=== PATIENT | female | born 1955 | race Caucasian/White ===

== ENCOUNTER 2024-03-08 09:58 | Emergency (ER) | payer MEDICARE, SELFPAY ==
[2024-03-08 10:10] VITALS: BP 128/81; PULSE 61; RESP 16; TEMP 36.6; O2SAT 97
--- NOTE | 2024-03-08 10:13 | ED.FEMALEGU ---
HPI - Female Genitourinary General Chief complaint: Urogenital-Female Stated complaint: Urinary Problem Time Seen by Provider: 03/08/24 10:15 Source: patient, RN notes reviewed and old records reviewed Mode of arrival: ambulatory Limitations: no limitations History of Present Illness HPI Narrative: 68 year old female presents to [facility] care with complaints of UTI symptoms which includes 3-4 days of feeling tired, forgetful and some nausea which are same symptoms she had last time with UTI that she became septic with a year ago. Patient reports no fevers, diarrhea or any vomiting. Patient reports no CV tenderness or pain to lower abdomen over bladder region, adelaida any fevers MD elicited complaint: UTI Pertinent past history: other (UTI became septic last year with UTI) Onset (ago): day(s) (3-4 dys) Severity scale (1-10): 5 Quality of pain: dull Consistency: constant Vaginal discharge: none Vaginal bleeding: none Treatment prior to arrival: none Patient : No Related Data Home Medications Medication Instructions Recorded Confirmed famotidine 20 mg tablet mg 03/08/24 fenofibrate 160 mg tablet mg 03/08/24 fluoxetine 40 mg capsule mg 03/08/24 haloperidol 2 mg tablet mg 03/08/24 levothyroxine 50 mcg tablet mcg 03/08/24 omeprazole 20 mg capsule,delayed mg 03/08/24 release pravastatin 40 mg tablet mg 03/08/24 Allergies Allergy/AdvReac Type Severity Reaction Status Date / Time No Known Allergies Allergy Verified 03/08/24 10:19 Review of Systems Review of Systems: CONSTITUTIONAL: Denies fever, chills, or sweats.tired CARDIOVASCULAR: Denies chest pain, palpitations, or edema. RESPIRATORY: Denies cough or dyspnea. GASTROINTESTINAL: Denies abdominal pain, nausea, vomiting, or diarrhea. GENITOURINARY: Reports no dysuria, frequency, urgency. Denies flank pain or hematuria.states nausea, reports no burning with urination. SKIN: Denies rash or itching. MUSCULOSKELETAL: Denies back pain or myalgia. Denies CVA tenderness NEUROLOGIC: Denies headache All systems reviewed & are unremarkable except as noted in HPI and below PMFSH Past Medical History Medical History (Updated 03/08/24 @ 13:04 by Emily Rico NP) Chronic renal disease, stage II Depression GERD (gastroesophageal reflux disease) Hypothyroidism Sepsis related to UTI last year Surgical History Surgical History (Updated 03/08/24 @ 13:04 by Emily Rico NP) H/O tubal ligation Social History Social History (Updated 03/08/24 @ 13:05 by Emily Rico NP) Smoking status: Never smoker Alcohol intake: current Alcohol use details: rare Substance use type: does not use Gender identity (if verbalized by the patient): Female Comments At time of signature, agree with nursing past medical, surgical, social and family history. There is no relevant family history pertinent to the presenting complaint Exam Narrative: GENERAL: Well-appearing, well-nourished, and in no acute distress. HEAD: Normocephalic, atraumatic. NECK: Supple.no lymphadenopathy CHEST: Clear to auscultation. No respiratory distress.SAO2 97% on room air HEART: Regular rate and rhythm. No murmur heard. Normal peripheral pulses. ABDOMEN: Soft, nontender to palpation, nondistended, normal active bowel sounds. No CVA tenderness EXTREMITIES: Normal range of motion. No edema. SKIN: Warm, dry, no rash. NEURO: No focal deficits. Alert and oriented x3. Course Course Emergency Course: Patient is aware of diagnosis, understands and agrees to treatment plan.? Anticipatory guidance given.? Patient agrees to follow-up as directed and is aware of reasons to seek care at the emergency department. Portions of this record may have been created with voice recognition software Level of Care: Express Care Visit Vital Signs Vital signs: Vital Signs Temperature 36.6 C 03/08/24 10:10 Pulse Rate 61 03/08/24 10:10 Respiratory Rate 16 03/08/24 10:10
[2024-03-08 10:21] LABS: EDUAAPPEAR Clear; EDUABILI Negative; EDUABLOOD Trace; EDUACOLOR1 Light/Pale; EDUAGLUCOSE Negative; EDUAKETONE Negative; EDUALEUKO 1+; EDUANITRATE Negative; EDUAPROTEIN Negative; EDUAUROBILI 0.2
== END 2024-03-08 10:44 | disposition home or self-care (01) ==
PROVIDERS: Emergency Provider Registered Nurse; PCP Physician Assistant
DX: N39.0 Urinary tract infection, site not specified (principal); N18.2 Chronic kidney disease, stage 2 (mild); K21.9 Gastro-esophageal reflux disease without esophagitis; E03.9 Hypothyroidism, unspecified
CPT/HCPCS: 81003; 87086; 99203; G0463